=== PATIENT | male | born 1995 | race Caucasian/White ===

== ENCOUNTER → 2018-09-27 | Outpatient (CLI) | payer OTHER | LOC: COL.PUL 09:59 | DX: R06.02 Shortness of breath (principal) | CPT/HCPCS: J7674 ==

== ENCOUNTER → 2019-03-18 | Outpatient (CLI) | payer OTHER | LOC: COL.RAD 10:46 | DX: G47.419 Narcolepsy without cataplexy (principal) | CPT/HCPCS: A9585 ==

== ENCOUNTER 2019-11-18 14:00 | Outpatient (RCR) | payer OTHER ==
[2019-08-20 14:21] VITALS: BP 158/91; PULSE 71; TEMP 98.1
--- NOTE | 2019-08-20 16:08 | NUR ---
Pt discharged via ambulatory.
[2019-09-03 14:18] VITALS: BP 150/83; PULSE 79; TEMP 98.4
[2019-09-17 14:14] VITALS: BP 150/83; PULSE 88; TEMP 98.5
[2019-10-02 14:26] VITALS: BP 139/88; PULSE 90; TEMP 97.8
[2019-10-16 14:15] VITALS: BP 142/83; PULSE 88; TEMP 98.2
[2019-10-30 13:41] VITALS: BP 126/86; PULSE 78; TEMP 98.6
[~2019-11-18] VITALS: Ht 182.9 cm; Wt 98.8 kg
[2019-11-18 13:47] VITALS: BP 139/85; PULSE 71; TEMP 98.2
[~2019-11-18 14:00] MED LIST: HYGROTON 2525 MG/TAB PO; PREDNISONE10 MG PO; RT ADVAIR HFA 2312 G IH; SINGULAIR 110 MG/TAB PO; SPIRIVA RE2.5 MCG/Ac IH; TIAZAC240 MG PO; ZYRTEC 10MG10 MG PO
--- NOTE | 2019-11-18 14:18 | NUR ---
Per pt report,this will be his last injecction at [facility].Per pt report he is moving to [place].
== END 2019-11-18 14:19 | disposition still patient (30) ==
LOC: EUO 14:00
DX: J45.40 Moderate persistent asthma, uncomplicated (principal); Z79.899 Other long term (current) drug therapy
CPT/HCPCS: J2357